=== PATIENT | female | born 1985 | race African-American/Black ===

== ENCOUNTER 2016-12-09 21:46 | Emergency (ER) | payer MEDICAID, SELFPAY ==
[~2016-12-09] VITALS: Ht 185.4 cm; Wt 104.4 kg
[2016-12-09] MEDS ORDERED: ONDANSETRON 2MG/ML, 2ML ONE (22:38)
[2016-12-09] MEDS ORDERED: MORPHINE SULFATE 4 MG/ML, 1ML ONE (22:38)
[2016-12-09 22:41] LABS: HEMATOCRIT 40.3 % (34.6-47.8); HEMOGLOBIN 13.1 g/dL (11.7-16.4); WHITE BLOOD COUNT 8.6 x10^3/uL (3.4-10)
[2016-12-09 22:53] LABS: BLOOD UREA NITROGEN 6 mg/dL (7-18)
[2016-12-09 22:54] LABS: ASPARTATE AMINO TRANSFERASE 49 U/L (15-37)
[2016-12-09] MEDS ORDERED: ONDANSETRON 2MG/ML, 2ML IVPush ONE (23:00)
[2016-12-09] MEDS ORDERED: morphine SULFATE 10 MG/ML, 1ML IVPush ONE (23:00)
[2016-12-10] MEDS ORDERED: OXYcodone/APAP 5/325MG TABLET ONE (00:40)
[2016-12-10 00:44] VITALS: BP 123/70
[2016-12-10] MEDS ORDERED: OXYcodone/APAP 5/325MG TABLET PO ONE (01:00)
== END 2016-12-10 00:46 | disposition home or self-care (01) ==
LOC: ED 23:55
DX: O26.832 Pregnancy related renal disease, second trimester (principal); N13.30 Unspecified hydronephrosis; Z3A.18 18 weeks gestation of pregnancy
CPT/HCPCS: 36415; 76700; 80053; 81001; 81003; 83690; 85025; 87077; 87086; 96374; 96375; 99285; J2270; J2405

== ENCOUNTER 2016-12-10 21:10 | Emergency (ER) | payer MEDICAID ==
[~2016-12-10] VITALS: Ht 185.4 cm; Wt 104.7 kg
[2016-12-10] MEDS ORDERED: ONDANSETRON 2MG/ML, 2ML ONE (21:41)
[2016-12-10] MEDS ORDERED: MORPHINE SULFATE 4 MG/ML, 1ML ONE (21:41)
[2016-12-10 21:53] LABS: HEMATOCRIT 37.4 % (34.6-47.8); HEMOGLOBIN 12.4 g/dL (11.7-16.4); WHITE BLOOD COUNT 8.7 x10^3/uL (3.4-10)
[2016-12-10] MEDS ORDERED: ONDANSETRON 2MG/ML, 2ML IVPush ONE (22:00)
[2016-12-10] MEDS ORDERED: MORPHINE SULFATE 4 MG/ML, 1ML IVPush PRN (22:00)
[2016-12-10 22:04] LABS: ASPARTATE AMINO TRANSFERASE 53 U/L (15-37); BLOOD UREA NITROGEN 9 mg/dL (7-18)
[2016-12-10 22:59] VITALS: BP 104/68
== END 2016-12-10 23:03 | disposition home or self-care (01) ==
LOC: ED 21:40
DX: O26.892 Other specified pregnancy related conditions, second trimester (principal); Z3A.18 18 weeks gestation of pregnancy; N13.2 Hydronephrosis with renal and ureteral calculous obstruction; R10.11 Right upper quadrant pain
CPT/HCPCS: 36415; 80053; 83690; 85025; 93005; 96374; 96375; 99285; J2405

== ENCOUNTER 2016-12-11 22:06 | Emergency (ER) | payer MEDICAID ==
[~2016-12-11] VITALS: Ht 154.9 cm; Wt 104.2 kg
[2016-12-11] MEDS ORDERED: OXYcodone/APAP 5/325MG TABLET PO ONE (23:30)
[2016-12-11] MEDS ORDERED: OXYcodone/APAP 5/325MG TABLET ONE (23:34)
[2016-12-12 00:07] VITALS: BP 123/76
== END 2016-12-12 00:10 | disposition home or self-care (01) ==
LOC: ED 12-12 00:01
DX: O21.9 Vomiting of pregnancy, unspecified (principal); R10.11 Right upper quadrant pain; R11.0 Nausea; Z3A.18 18 weeks gestation of pregnancy
CPT/HCPCS: 99283